=== PATIENT | male | born 1990 | race African-American/Black ===

== ENCOUNTER 2017-12-09 03:38 | Emergency (ER) | payer OTHER ==
[2017-12-09 04:55] LABS: ADD MAN DIFF? NO
[2017-12-09 04:56] LABS: BASOPHIL # 0.1 10^3/ul (0.0-0.1); BASOPHILS % 0.5 % (0.0-2.0); EOSINOPHILS # 0.1 10^3/ul (0.0-0.5); HEMATOCRIT 40.6 % (42.0-52.0); HEMOGLOBIN 13.8 g/dl (14.0-18.0); LYMPHOCYTES # 3.2 10^3/ul (0.8-2.9); LYMPHOCYTES % 33.8 % (15.0-51.0); MEAN CORPUSCULAR HEMOGLOBIN 28.4 pg (29.0-33.0); MEAN CORPUSCULAR VOLUME 83.5 fl (82.0-101.0); MEAN PLATELET VOLUME 10.3 fl (7.4-10.4); MONOCYTE # 0.7 10^3/ul (0.3-0.9); MONOCYTES % 7.8 % (0.0-11.0); NEUTROPHIL # 5.3 10^3/ul (1.6-7.5); NEUTROPHILS % 56.3 % (39.0-77.0); PLATELET COUNT 289 10^3/UL (140-415); RED BLOOD COUNT 4.86 10^6/ul (4.70-6.10); RED CELL DISTRIBUTION WIDTH 13.3 % (11.5-14.5)
[2017-12-09 04:56] LABS: WHITE BLOOD COUNT 9.3 10^3/ul (4.8-10.8)
[2017-12-09] MEDS: SOD CHLORIDE 0.9% 1,000 ML IV (04:59)
[2017-12-09 05:13] LABS: ANION GAP 22 (8-16); BLOOD UREA NITROGEN 10 mg/dl (7-20); CALCIUM 9.9 mg/dl (8.4-10.2); CARBON DIOXIDE 24 mmol/L (21-31); CHLORIDE 100 mmol/L (97-110); CREATINE KINASE 943 IU/L (23-200); CREATININE 0.62 mg/dl (0.61-1.24); GLUCOSE 135 mg/dl (70-220); MAGNESIUM 1.6 mg/dl (1.7-2.5); POTASSIUM 3.5 mmol/L (3.5-5.1); SODIUM 142 mmol/L (135-144)
[2017-12-09 05:25] LABS: TROPONIN-I < 0.010 ng/ml (0.000-0.120)
[2017-12-09] MEDS: MAGNESIUM OXIDE 400 MG TAB PO (05:58)
[2017-12-09] MEDS ORDERED: DILTIAZEM 25 MG INJ (05:59)
[2017-12-09] MEDS ORDERED: DILTIAZEM 25 MG INJ IV (06:00)
[2017-12-09 06:20] LABS: INR 0.93; PARTIAL THROMBOPLASTIN TIME 29.6 Sec (25.0-35.0); PROTIME 12.5 Sec (11.9-14.9)
[2017-12-09 06:36] LABS: AMPHETAMINE/METHAMPHETAMINE POSITIVE (NEGATIVE); BARBITURATES NEGATIVE (NEGATIVE); BENZODIAZEPINES POSITIVE (NEGATIVE); CANNABINOIDS NEGATIVE (NEGATIVE); COCAINE POSITIVE (NEGATIVE); OPIATES POSITIVE (NEGATIVE)
[2017-12-09 06:43] LABS: ETHANOL < 10.0 mg/dl
[2017-12-09 06:44] LABS: ACETAMINOPHEN < 10.0 ug/ml (10.0-30.0); VALPROATE 14 ug/ml (50-100)
[2017-12-09 06:44] LABS: ALANINE AMINOTRANSFERASE 119 IU/L (13-69); ASPARTATE AMINO TRANSFERASE 111 IU/L (15-46); SALICYLATE < 1.0 mg/dl (5.0-30.0)
[2017-12-09 06:45] LABS: ALBUMIN 4.8 g/dl (3.3-4.9); ALKALINE PHOSPHATASE 62 IU/L (42-121); BILIRUBIN,INDIRECT 0.6 mg/dl (0-1.1); BILIRUBIN,TOTAL 0.6 mg/dl (0.2-1.3); TOTAL PROTEIN 8.7 g/dl (6.1-8.1)
== END 2017-12-09 07:24 | disposition left against medical advice (07) ==
LOC: E/R 07:24
DX: E83.42 Hypomagnesemia (principal); D64.9 Anemia, unspecified; F15.10 Other stimulant abuse, uncomplicated; F11.10 Opioid abuse, uncomplicated; F13.10 Sedative, hypnotic or anxiolytic abuse, uncomplicated; R07.9 Chest pain, unspecified
CPT/HCPCS: 36415; 71045; 80048; 80076; 80164; 80307; 82550; 83735; 84484; 85025; 85610; 85730; 93005; 99284-25

== ENCOUNTER 2017-12-21 11:32 | Emergency (ER) | payer OTHER | END 2017-12-21 15:23 | disposition home or self-care (01) | LOC: FTE 15:23 | DX: M25.571 Pain in right ankle and joints of right foot (principal); M25.572 Pain in left ankle and joints of left foot | CPT/HCPCS: 99283 ==